=== PATIENT | female | born 1960 | race African-American/Black ===

== ENCOUNTER 2020-05-26 11:28 | Emergency (ER) | payer BC ==
--- OUTSIDE RECORDS SUMMARY | 2020-05-26 11:30 | XMS REPORT | Continuity of Care Document ---
:1960 Author Organization [facility] t Address [address] [place] [address] Care Team Providers Name Role Phone Merly QUINONEZ Primary Care Physician Lab, Fam Pob I Attending Clinician Unavailable Doctor Unassigned, Name Attending Clinician Unavailable Suleman QUINONEZ Attending Clinician Aniya QUINONEZ, 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 Radiother apy with 8.7 mCi of I -131 Sodium Iodide orally H/O H/O Disease Active Overview: [place] Graves' Graves' 05-17 Hyperthyr Metho di disease disease 00:00: oid st 00 therapy. Radiother apy with 8.7 mCi of I-131 Sodium Iodide Orally Allergies, Adverse Reactions, Alerts This patient has no known allergies or adverse reactions. Family History Family Member Diagnosis Comments Start Date Stop Date Source Natural father Diabetes type II [place] Natural father Hypertension [facility] Natural mother Coronary artery [place] disease Natural mother Diabetes type II [place] Natural mother Hypertension [facility] Social History Social Habit Start Date Stop Date Quantity Comments Source Sex Assigned At [facility] ethodist Tobacco use and 2018-02-04 2018-02-04 Never used [facility] ethodist exposure 00:00:00 00:00:00 Alcohol intake 2018-02-04 2018-02-04 Current drinker [place] 00:00:00 00:00:00 of alcohol (finding) Alcohol Comment 2016-12-23 2016-12-23 Social drinker [place] 00:00:00 00:00:00 Smoking Status Start Date Stop Date Source Never smoker [facility] Medications Ordered Filled Start Stop Current Ordering Indication Dosage Frequency Signature Comments Components Source Medication Medication Date Date Medication? Clinician (SIG) Name Name SYNTHROID Yes TAKE 1 [place] 112 mcg 3-28 TABLET BY [facility] tablet 00:00: MOUTH st 00 EVERY DAY SYNTHROID Yes TAKE 1 [place] 112 mcg 3-11 TABLET BY [facility] tablet 00:00: MOUTH st 00 EVERY DAY amLODIPine Yes 1{tbl} QD 1 tablet [place] (NORVASC) 8-21 daily. Methodi 10 mg 13:57: st tablet 02 atorvastati Yes 1{tbl} QD Take 1 [place] n (LIPITOR) 8-21 tablet by hodi 10 MG 13:57: mouth st tablet [address] 1 [place] 0.05 % 8-11 DROP IN Methodi ophthalmic 00:00: BOTH EYES st emulsion 00 TWICE A DAY gatifloxaci Yes PLACE 1 Daniel morataya n (ZYMAXID) 7-18 DROP IN Metho di 0.5 % drops 00:00: LEFT EYE st 00 FOUR TIMES A DAY FOR 7 DAYS Procedures This patient has no known procedures. Plan of Care Planned Activity Planned Date Details Comments Source Future Scheduled 2019-12-16 INFLUENZA VACCINE [place] Test 00:00:00 [code = INFLUENZA VACCINE] Future Scheduled 2008 BREAST CANCER [place] [facility]odist Test 00:00:00 SCREENING [code = BREAST CANCER SCREENING] Future Scheduled 2008 COLONOSCOPY SCREENING [place] Test 00:00:00 [code = COLONOSCOPY SCREENING] Future Scheduled 2008 SHINGLES VACCINES [place] Test 00:00:00 (#1) [code = SHINGLES VACCINES (#1)] Future Scheduled 1979-11-12 Screening for [facility] thodist Test 00:00:00 malignant neoplasm of cervix (procedure) [code = 732246747] Future Scheduled 1974 COVID-19 VACCINE (#1) [place] Test 00:00:00 [code = COVID-19 VACCINE (#1)] Encounters Start End Encounter Admission Attending Care Care Encounter Source Date/Time Date/Time Type Type Clinicians Facility Department ID 2020-05-26 2020-05-26 Laboratory Lab, [facility] [id number] 10:24:27 10:44:27 Only Fam Pob I Health [id number] [place] [id number] Professio [phone] nal [facility] [address] 2019-12-02 2019-12-02 Laboratory Lab, [facility] [id number] 15:18:59 15:38:59 Only Fam Pob I Health [id number] [place] [id number] Professio [phone] [place] [address] [address] 2019-12-02 2019-12-02 Letter Doctor KRISSY [id number] 00:00:00 00:00:00 (Out) Unassigned, STEPHEN [id number] [facility] [id number] 2019-07-07 2019-07-09 Emergency Jerson Shell [id number] 18:54:36 13:35:00 KwanBoaz bradfordy [id number] [facility] [id number] [id number] Results This patient has no known results.
--- OUTSIDE RECORDS SUMMARY | 2020-05-26 11:30 | XMS REPORT | Summary of Care ---
:1960 Author Organization [facility] [employer] [facility] Address [address] [place] [id number] Care Team Providers Name Role Phone Merly Primary Care Provider Reason for Visit Reason Comments LAB Covid test Encounter Details Date Type Department Care Team Description 05/26/2020 Laboratory Only [facility] Marylou Moore, IRRIGATION SPECIALIST [address] [place] [address] Exposure to Medicine - [facility], Adc Fam Pob I SARS-associated [address] [facility] coronaviru s ([address] Drive Dx) [place] [address] Allergies No Known Allergiesdocumented as of this encounter (statuses as of 05/26/2020) Medications Medication Sig Dispensed Refills Start Date End Date Status levothyroxine Take 112 mcg by 0 Active (SYNTHROID) 112 mcg mouth every tablet morning. enalapril-hydrochlorothi Take 1 tablet by 0 Active azide 10-25 mg per mouth daily. tablet atorvastatin 10 mg Take 10 mg by 0 Active tablet mouth at bedtime. methocarbamol 500 mg Take 1 tablet by 10 tablet 0 07/09/2019 Active tabletIndications: Neck mouth 3 (three) pain on right side times daily. documented as of this encounter (statuses as of 05/26/2020) Active Problems Problem Noted Date Intractable pain 07/09/2019 Musculoskeletal neck pain 07/08/2019 documented as of this encounter (statuses as of 05/26/2020) Social History Tobacco Use Types Packs/Day Years Used Date Never Smoker Smokeless Tobacco: Never Used Alcohol Use Drinks/Week oz/Week Comments Not Currently Sex Assigned at Date Recorded Not on file COVID-19 Exposure Response Date Recorded In the last month, have you been in contact with No / Unsure 05/26/2020 10:26 AM BUSHER HELPER someone who was confirmed or suspected to have Coronavirus / COVID-19? documented as of this encounter Last Filed Vital Signs Not on filedocumented in this encounter Nursing Notes Julia Peters RN - 05/26/2020 10:40 AM CSTChrisbirgit Diaz is a 59 year old female here for a Rule Out Covid-19 Nasopharyngeal Swab.Patient educated on plan of care for visit, swabbing technique, risks and benefits of test and length of time to receive results. Verbal consent obtained to perform test. CDC Fact Sheet for Patients provided to patient. All droplet and contact precautions taken with appropriate PPE worn while interacting with patient. - Goggles - N95 Mask - Gloves - Gown RR=18 O2 Lzm=671% Patient swabbed using appropriate nasopharyngeal technique, and patient tolerated well. Patient was discharged in stable condition. Julia Izquierdo RN 05/26/2020 10:29 AM ER HELPER documented in this encounter Plan of Treatment Name Type Priority Associated Diagnoses Order S chedule COVID-19 (MOLECULAR LAB Routine Exposure to Expected : 05/26/2020, TESTING SARS-associated Expires: 022 NUCLEIC ACID coronavirus AMPLIFICATION) Health Maintenance Due Date Last Done Comments HEPATITIS C (HCV) SCREEN 1960 HgA1C 11/12/1959 EYE EXAM 1968 LDL-C 1968 URINE MICROALBUMIN 1968 Depression Screening 1970 FOOT EXAM 1976 DTaP,Tdap,and Td Vaccines (1 - 1977 Tdap) PAP SMEAR 11/12/1979 Breast Cancer Screening 1998 (MAMMOGRAM) COLON CANCER SCREENING ANNUAL 2008 FIT/FOBT COLON CANCER SCREENING FIT DNA 2008 EVERY 3 YEARS COLON CANCER SCREENING 2008 SIGMOIDOSCOPY EVERY 5 YEARS COLONOSCOPY 2008 Colorectal Cancer Screening 2008 Zoster Recombinant Vaccine 2008 (SHINGRIX) (1 of 2) INFLUENZA VACCINE (#1) 2020 CREATININE (SERUM) 07/09/2020 07/09/2019, 07/08/2019, 07/07/2019 PNEUMOCOCCAL 0-64 YEARS Aged Out No longe r eligible based COMBINED SERIES on patient's age to complete this to pic documented as of this encounter Results Not on filedocumented in this encounter Visit Diagnoses Diagnosis Exposure to SARS-associated coronavirus - Primary documented in this encounter Additional Health Concerns Infection Onset Date Last Indicated Resolved Time COVID-19 Rule Out 05/26/2020 05/26/2020 documented as of this encounter Insurance Payer Benefit Plan Subscriber ID Effective Dates Phone Address Type / Group [facility] [id number] 2016-Stanislaw [phone] [address] PPO/[place] [id number] [place] [address] documented as of this encounter
--- OUTSIDE RECORDS SUMMARY | 2020-05-26 11:30 | XMS REPORT | Clinical Summary ---
:1960 Author Organization [facility] Address [address] [place] [address] Care Team Providers Name Role Phone MD Merly Primary Care Provider Allergies No Known Active Allergies Medications Medication Sig Dispensed Refills Start Date End Date Status amLODIPine (NORVASC) 10 1 tablet daily. 0 Active mg tablet atorvastatin (LIPITOR) Take 1 tablet by 0 Active 10 MG tablet mouth daily. gatifloxacin (ZYMAXID) PLACE 1 DROP IN 0 12/01/2016 Active 0.5 % drops LEFT EYE FOUR TIMES A DAY FOR 7 DAYS RESTASIS 0.05 % PLACE 1 DROP IN 2 12/25/2016 Active ophthalmic emulsion BOTH EYES TWICE A DAY SYNTHROID 112 mcg TAKE 1 TABLET BY 90 tablet 0 07/25/2018 Active tablet MOUTH EVERY DAY SYNTHROID 112 mcg TAKE 1 TABLET BY 90 tablet 0 08/11/2018 Active tablet MOUTH EVERY DAY Active Problems Problem Noted Date Benign hypertension 12/23/2016 Postablative hypothyroidism 12/23/2016 Toxic diffuse goiter 12/23/2016 Postablative hypothyroidism 05/17/2005 Overview: Grave's Disease: hyperthyroid therapy. R adiotherapy with 8.7 mCi of I -131 Sodium Iodide orally H/O Graves' disease 05/17/2005 Overview: Hyperthyroid therapy. Radiotherapy with 8.7 mCi of I-131 Sodium Iodide Orally Surgical History Surgery Date Site/Laterality Comments NO PAST SURGERIES Medical History Medical History Date Comments Benign hypertension 2011 Postablative hypothyroidism 2006 Grave's Dise ase: hyperthyroid therapy. Radiotherapy with 8.7 mCi of I -1 31 Sodium Iodide orally Toxic diffuse goiter 2005 H/O Graves' disease 2006 Hyperthyroid therapy . Radiotherapy with 8.7 mCi of I-131 Sodium Iodide Orally Family History Medical History Relation Name Comments Diabetes type II Father Hypertension Father Coronary artery disease Mother Diabetes type II Mother Hypertension Mother Relation Name Status Comments Father Mother Social History Tobacco Use Types Packs/Day Years Used Date Never Smoker Smokeless Tobacco: Never Used Alcohol Use Drinks/Week oz/Week Comments Yes Social drinker Sex Assigned at Date Recorded Not on file Last Filed Vital Signs Not on file Plan of Treatment Health Maintenance Due Date Last Done Comments COVID-19 VACCINE (#1) 1974 CERVICAL CANCER SCREENING 11/12/1979 BREAST CANCER SCREENING 2008 COLONOSCOPY SCREENING 2008 SHINGLES VACCINES (#1) 2008 INFLUENZA VACCINE 12/16/2019 Results Not on fileafter 05/26/2019 (Work) Advance Directives For more information, please contact: [phone] Type Date Recorded Patient Lpn Explanati on Advance Directives, Living Will 02/18/2018 5:34 PM and 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
[2020-05-26] MEDS ORDERED: dexAMETHasone 10 MG/ML VIAL ONE (12:04)
[2020-05-26 12:25] LABS: Absolute Lymphocytes (CBC) 0.7 K/uL (0.7-4.9); Basophils % 0.5 % (0-1.3); Lymphocytes % 18.4 % (15.3-44.8); MPV 8.3 fL (7.6-11.3)
[2020-05-26 12:40] LABS: Potassium 3.7 mmol/L (3.5-5.1)
[2020-05-26 12:51] LABS: Thyroid Stimulating Hormone 7.32 uIU/mL (0.360-3.740)
--- NOTE | 2020-05-26 12:55 | RAD REPORT ---
EXAM DESCRIPTION: RAD - Chest Single View - 05/26/2020 12:50 pm CLINICAL HISTORY: COUGH Chest pain. COMPARISON: Chest Pa And Lat (2 Views) dated 03/17/2016 FINDINGS: Portable technique limits examination quality. The lungs are grossly clear. The heart is upper limit of normal in size. No displaced fractures. IMPRESSION: No acute intrathoracic process suspected.
[2020-05-26 14:37] LABS: SARS-COV-2 RT PCR POSITIVE (NEGATIVE)
--- NOTE | 2020-05-26 14:59 | ER ---
Nurse's Notes [facility] Name: Shruti Diaz Age: 59 yrs Sex: Female : 1960 Arrival Date: 05/26/2020 Time: 11:30 Bed 16 Private MD: Pancho Moreland V Diagnosis: SARS-associated coronavirus as the cause of diseases classified elsewhere Presentation: 05/26 11:35 Chief complaint: Patient states: bodyaches and slight headache since yesterday. ca1 Coronavirus screen: Client denies travel out of the [place] in the last 14 days. fever, headache, muscle pain, Client presents with at least one sign or symptom that may indicate coronavirus-19. Standard/surgical mask placed on the client. Provider contacted for isolation considerations. Ebola Screen: Patient negative for fever greater than or equal to 101.5 degrees Fahrenheit, and additional compatible Ebola Virus Disease symptoms Patient denies exposure to infectious person. Patient denies travel to an Ebola-affected area in the 21 days before illness onset. No symptoms or risks identified at this time. Initial Sepsis Screen: Does the patient meet any 2 criteria? No. Patient's initial sepsis screen is negative. Does the patient have a suspected source of infection? No. Patient's initial sepsis screen is negative. Risk Assessment: Do you want to hurt yourself or someone else? Patient reports no desire to harm self or others. Onset of symptoms was May 25, 2020. 11:35 Method Of Arrival: Ambulatory ca1 11:35 Acuity: JANE 4 ca1 Triage Assessment: 11:45 General: Appears in no apparent distress. comfortable, Behavior is calm, cooperative, bp appropriate for age. Pain: Complains of pain in GENERAL MYALGIA. EENT: No deficits noted. Neuro: No deficits noted. Cardiovascular: No deficits noted. Respiratory: No deficits noted. GI: No signs and/or symptoms were reported involving the gastrointestinal system. : No signs and/or symptoms were reported regarding the genitourinary system. Derm: No deficits noted. Musculoskeletal: No deficits noted. Historical: - Allergies: 11:45 No Known Allergies; ca1 - PMHx: 11:45 Thyroid problem; Hypertension; High Cholesterol; ca1 - PSHx: 11:45 None; ca1 - Immunization history:: Flu vaccine is up to date. - Social history:: Smoking status: Patient denies any tobacco usage or history of. Screenin:45 Abuse screen: Denies threats or abuse. Denies injuries from another. Nutritional bp screening: No deficits noted. Tuberculosis screening: No symptoms or risk factors identified. Fall Risk None identified. Assessment: 12:56 Reassessment: Patient appears in no apparent distress at this time. No changes from bp previously documented assessment. Patient and/or family updated on plan of care and expected duration. Pain level reassessed. ALL CURRENT ORDERS COMPLETED. 14:00 Reassessment: No changes from previously documented assessment. Patient and/or family bp updated on plan of care and expected duration. Pain level reassessed. Patient is alert, oriented x 3, equal unlabored respirations, skin warm/dry/pink. 15:26 Reassessment: PT D/C HOME AMBULATORY, DX WITH COVID. bp Vital Signs: 11:35 BP 143 / 79; Pulse 102; Resp 16 S; Temp 100(O); Pulse Ox 99% on R/A; Weight 81.65 kg ca1 (R); Height 5 ft. 2 in. (157.48 cm) (R); 12:56 BP 139 / 76; Pulse 90; Resp 16; Pulse Ox 98% ; bp 14:00 BP 133 / 71; Pulse 97; Resp 16; Pulse Ox 97% ; bp 15:00 BP 130 / 57; Pulse 98; Resp 17; Temp 98.9; Pulse Ox 98% ; bp 11:35 Body Mass Index 32.92 (81.65 kg, 157.48 cm) ca1 ED Course: 11:30 Patient arrived in ED. ag5 11:31 Pancho Moreland MD is Private Physician. ag5 11:33 Henri[facility] Reeves [facility]-C [facility]. snw 11:33 David Esqueda MD is Attending Physician. snw 11:37 Win Delgado, BRETT is Primary Nurse. bp 11:45 Triage completed. ca1 11:45 Arm band placed on right wrist. ca1 11:45 Patient has correct armband on for positive identification. Bed in low position. Call bp light in reach. Side rails up X2. 11:46 COVID swab sent to lab. Flu and/or RSV swab sent to lab. ca1 12:00 Inserted saline lock: 20 gauge in left antecubital area, using aseptic technique. Blood bp collected. 12:06 Flu Sent. bp 12:50 Chest Single View XRAY In Process Unspecified. EDMS 14:00 No provider procedures requiring assistance completed. bp 14:57 Pancho Moreland MD is Referral Physician. snw 15:27 IV discontinued, intact, bleeding controlled, No redness/swelling at site. Pressure bp dressing applied. Administered Medications: 12:00 Drug: NS 0.9% 500 ml Route: IV; Rate: bolus; Site: left antecubital; bp 15:10 Follow up: IV Status: Completed infusion; IV Intake: 500ml bp 12:00 Drug: Decadron - Dexamethasone 10 mg Route: IVP; Site: left antecubital; bp 12:57 Follow up: Response: No adverse reaction bp 15:00 Drug: Aspirin 81 mg Route: PO; bp 15:28 Follow up: Response: No adverse reaction bp 15:00 Drug: Zithromax 500 mg Route: PO; bp 15:28 Follow up: Response: No adverse reaction bp Intake: 15:10 IV: 500ml; Total: 500ml. bp Outcome: 14:58 Discharge ordered by . snw 15:27 Discharged to home ambulatory. bp 15:27 Condition: stable 15:27 Discharge instructions given to patient, Instructed on discharge instructions, follow up and referral plans. medication usage, Demonstrated understanding of instructions, follow-up care, medications, Prescriptions given X 4. 15:28 Patient left the ED. bp Signatures: Dispatcher [employer] EDAL Henrietta Reeves, SPRAY MIXER-C SPRAY MIXER-Csnw Win Delgado RN RN bp Corazon George RN RN [facility] Duran Car ag5
--- NOTE | 2020-05-26 14:59 | EDPHYS ---
Physician Documentation [facility] Name: Shruti Diaz Age: 59 yrs Sex: Female : 1960 Arrival Date: 05/26/2020 Time: 11:30 Bed 16 Private MD: Pancho Moreland V ED Physician David Esqueda HPI: 05/26 12:42 This 59 yrs old Black Female presents to ER via Ambulatory with complaints of Body snw Aches. 12:42 Onset: The symptoms/episode began/occurred suddenly, yesterday. Associated signs and snw symptoms: Pertinent positives: fatigue. Modifying factors: The patient symptoms are alleviated by nothing. The patient has not experienced similar symptoms in the past. The patient has not recently seen a physician. Historical: - Allergies: 11:45 No Known Allergies; ca1 - PMHx: 11:45 Thyroid problem; Hypertension; High Cholesterol; ca1 - PSHx: 11:45 None; ca1 - Immunization history:: Flu vaccine is up to date. - Social history:: Smoking status: Patient denies any tobacco usage or history of. ROS: 12:41 Eyes: Negative for injury, pain, redness, and discharge, ENT: Negative for injury, snw pain, and discharge, Neck: Negative for injury, pain, and swelling, Cardiovascular: Negative for chest pain, palpitations, and edema, Respiratory: Negative for shortness of breath, cough, wheezing, and pleuritic chest pain, Abdomen/GI: Negative for abdominal pain, nausea, vomiting, diarrhea, and constipation, Back: Negative for injury and pain, : Negative for injury, bleeding, discharge, and swelling, MS/Extremity: Negative for injury and deformity, Skin: Negative for injury, rash, and discoloration, Neuro: Negative for headache, weakness, numbness, tingling, and seizure, Psych: Negative for depression, anxiety, suicide ideation, homicidal ideation, and hallucinations. 12:41 Constitutional: Positive for body aches, fatigue, fever, poor PO intake. Exam: 12:41 Constitutional: This is a well developed, well nourished patient who is awake, alert, snw and in no acute distress. Head/Face: Normocephalic, atraumatic. Eyes: Pupils equal round and reactive to light, extra-ocular motions intact. Lids and lashes normal. Conjunctiva and sclera are non-icteric and not injected. Cornea within normal limits. Periorbital areas with no swelling, redness, or edema. ENT: Nares patent. No nasal discharge, no septal abnormalities noted. Tympanic membranes are normal and external auditory canals are clear. Oropharynx with no redness, swelling, or masses, exudates, or evidence of obstruction, uvula midline. Mucous membranes moist. Neck: Trachea midline, no thyromegaly or masses palpated, and no cervical lymphadenopathy. Supple, full range of motion without nuchal rigidity, or vertebral point tenderness. No Meningismus. Chest/axilla: Normal chest wall appearance and motion. Nontender with no deformity. No lesions are appreciated. 12:41 Respiratory: Lungs have equal breath sounds bilaterally, clear to auscultation and percussion. No rales, rhonchi or wheezes noted. No increased work of breathing, no retractions or nasal flaring. Abdomen/GI: Soft, non-tender, with normal bowel sounds. No distension or tympany. No guarding or rebound. No evidence of tenderness throughout. Back: No spinal tenderness. No costovertebral tenderness. Full range of motion. Skin: Warm, dry with normal turgor. Normal color with no rashes, no lesions, and no evidence of cellulitis. MS/ Extremity: Pulses equal, no cyanosis. Neurovascular intact. Full, normal range of motion. Neuro: Awake and alert, GCS 15, oriented to person, place, time, and situation. Cranial nerves II-XII grossly intact. Motor strength 5/5 in all extremities. Sensory grossly intact. Cerebellar exam normal. Normal gait. Psych: Awake, alert, with orientation to person, place and time. Behavior, mood, and affect are within normal limits. 12:41 Cardiovascular: Rate: tachycardic, Rhythm: regular, Heart sounds: normal. Vital Signs: 11:35 BP 143 / 79; Pulse 102; Resp 16 S; Temp 100(O); Pulse Ox 99% on R/A; Weight 81.65 kg ca1 (R); Height 5 ft. 2 in. (157.48 cm) (R); 12:56 BP 139 / 76; Pulse 90; Resp 16; Pulse Ox 98% ; bp 14:00 BP 133 / 71; Pulse 97; Resp 16; Pulse Ox 97% ; bp 15:00 BP 130 / 57; Pulse 98; Resp 17; Temp 98.9; Pulse Ox 98% ; bp 11:35 Body Mass Index 32.92 (81.65 kg, 157.48 cm) ca1 MDM: 11:35 Patient medically screened. snw 14:58 Data reviewed: vital signs, nurses notes. Data interpreted: Pulse oximetry: on room air snw is 98 %. Interpretation: normal. Counseling: I had a detailed discussion with the patient and/or guardian regarding: the historical points, exam findings, and any diagnostic results supporting the discharge/admit diagnosis, lab results, radiology results, the need for outpatient follow up, to return to the emergency department if symptoms worsen or persist or if there are any questions or concerns that arise at home. Special discussion: Based on the history and exam findings, there is no indication for further emergent testing or inpatient evaluation. I discussed with the patient/guardian the need to see the primary care provider for further evaluation of the symptoms. 05/26 11:34 Order name: Flu snw 05/26 11:41 Order name: CBC with Diff; Complete Time: 12:29 snw 05/26 11:41 Order name: Chem 7; Complete Time: 13:08 snw 05/26 11:41 Order name: TSH; Complete Time: 13:08 snw 05/26 12:29 Order name: Chest Single View XRAY; Complete Time: 13:08 snw 05/26 12:51 Order name: T4 Free; Complete Time: 13:08 EDMS 05/26 14:38 Order name: COVID-19/FLU A+B; Complete Time: 14:40 EDMS Administered Medications: 12:00 Drug: NS 0.9% 500 ml Route: IV; Rate: bolus; Site: left antecubital; bp 15:10 Follow up: IV Status: Completed infusion; IV Intake: 500ml bp 12:00 Drug: Decadron - Dexamethasone 10 mg Route: IVP; Site: left antecubital; bp 12:57 Follow up: Response: No adverse reaction bp 15:00 Drug: Aspirin 81 mg Route: PO; bp 15:28 Follow up: Response: No adverse reaction bp 15:00 Drug: Zithromax 500 mg Route: PO; bp 15:28 Follow up: Response: No adverse reaction bp Disposition: 15:43 Co-signature as Attending Physician, David Esqueda MD. rn Disposition: 05/26/20 14:58 Discharged to Home. Impression: SARS-associated coronavirus as the cause of diseases classified elsewhere. - Condition is Stable. - Discharge Instructions: Rehydration, Adult, COVID-19, Aspirin and Your Heart. - Prescriptions for Zinc (with A and C) Lozenges - take 1 unit by ORAL route once daily; 30 unit. Prednisone 20 mg Oral Tablet - take 2 tablet by ORAL route once daily for 5 days; 10 tablet. promethazine 25 mg Oral Tablet - take 1 tablet by ORAL route every 6 hours As needed; 20 tablet. Zithromax 500 mg Oral Tablet - take 1 tablet by ORAL route once daily for 5 days; 5 tablet. - Medication Reconciliation Form, Thank You Letter, Antibiotic Education, Prescription Opioid Use, Work release form form. - Follow up: Pancho Moreland MD; When: 1 - 2 days; Reason: Recheck today's complaints, Continuance of care, Re-evaluation by your physician. Follow up: Emergency Department; When: As needed; Reason: Worsening of condition. Signatures: Dispatcher [employer] EDVA Henrietta Reeves, GEOTHERMAL FIELD TECHNICIAN-C GEOTHERMAL FIELD TECHNICIAN-Csnw David Esqueda MD MD rn Peltier, Brian RN Corazon Shukla RN BRETT ca1 Corrections: (The following items were deleted from the chart) 13:51 11:35 CORONAVIRUS+ ordered. [facility] 15:28 14:58 05/26/2020 14:58 Discharged to Home. Impression: SARS-associated coronavirus as bp the cause of diseases classified elsewhere. Condition is Stable. Discharge Instructions: Rehydration, Adult, COVID-19, Aspirin and Your Heart. Prescriptions for Zinc (with A and C) Lozenges - take 1 unit by ORAL route once daily; 30 unit, Prednisone 20 mg Oral Tablet - take 2 tablet by ORAL route once daily for 5 days; 10 tablet, promethazine 25 mg Oral Tablet - take 1 tablet by ORAL route every 6 hours As needed; 20 tablet, Zithromax 500 mg Oral Tablet - take 1 tablet by ORAL route once daily for 5 days; 5 tablet. and Forms are Work release form, Medication Reconciliation Form, Thank You Letter, Antibiotic Education, Prescription Opioid Use. Follow up: Pancho Moreland; When: 1 - 2 days; Reason: Recheck today's complaints, Continuance of care, Re-evaluation by your physician. Follow up: Emergency Department; When: As needed; Reason: Worsening of condition. snw
[2020-05-26] MEDS ORDERED: ASPIRIN 81 MG CHEWABLE TABLET ONE (15:31)
[2020-05-26] MEDS ORDERED: AZITHROMYCIN 250 MG TAB ONE (15:32)
[2020-05-26 15:37] VITALS: BP 130/57; TEMP 98.9; O2SAT 98
== END 2020-05-26 15:28 | disposition home or self-care (01) ==
LOC: ER 11:28
DX: U07.1 COVID-19 (principal); I10 Essential (primary) hypertension
CPT/HCPCS: 85025; 80048; 36415; 84443; 84439; 0240U; 71045; J1100; 96361; 96374; 99284

== ENCOUNTER 2020-05-31 02:21 | Inpatient (IN) | payer BC ==
--- OUTSIDE RECORDS SUMMARY | 2020-05-31 02:24 | XMS REPORT | Continuity of Care Document ---
:1960 Author Organization [facility] t Address [address] [place] [address] Care Team Providers Name Role Phone Merly QUINONEZ Primary Care Physician Lab, Fam Pob I Attending Clinician Unavailable Doctor Unassigned, Name Attending Clinician Unavailable Suleman QUINONEZ Attending Clinician Aniya QUINONEZ, [facility] Attending Clinician Jono QUINONEZ Admitting Clinician Problems Condition Condition Condition Status Onset Resolution Last Treating Co mments Source Name Details Category Date Date Treatment Clinician Date Benign Benign Disease Active [place] hypertensi hypertensi 12-23 Me thodi on on 00:00: st Postablati Postablati Disease Active [place] ve ve 12-23 [facility] hypothyroi hypothyroi 00:00: dism 00 Toxic Toxic Disease Active [place]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 Radiother apy with [...] Natural father Diabetes type II [place] [facility] Natural father Hypertension [facility] Natural mother Coronary artery [place] [facility] disease Natural mother Diabetes type II [place] [facility] Natural mother Hypertension [facility] Social History Social Habit Start Date Stop Date Quantity Comments Source Sex Assigned At [facility] ethodist Tobacco use and 2018-02-04 2018-02-04 Never used [facility] ethodist exposure 00:00:00 00:00:00 Alcohol intake 2018-02-04 2018-02-04 Current drinker [place] [facility] 00:00:00 00:00:00 of alcohol (finding) Alcohol Comment 2016-12-23 2016-12-23 Social drinker [place] [facility] 00:00:00 00:00:00 Smoking Status Start Date Stop Date Source Never smoker [facility] Medications Ordered Filled Start Stop Current Ordering [...] 02 atorvastati Yes 1{tbl} QD Take 1 [place] weeks n (LIPITOR) 8-21 tablet by [facility] hodi 10 MG 13:57: mouth st tablet [address]. [address] 1 [place] 0.05 % 8-11 DROP IN Methodi [...] Future Scheduled 2019-12-16 INFLUENZA VACCINE [place] [facility] Test 00:00:00 [code = INFLUENZA VACCINE] Future Scheduled 2008 BREAST CANCER [place] [facility] Test 00:00:00 SCREENING [code = BREAST CANCER SCREENING] Future Scheduled 2008 COLONOSCOPY SCREENING [place] [facility] Test 00:00:00 [code = COLONOSCOPY SCREENING] Future Scheduled 2008 SHINGLES VACCINES [place] [facility] Test 00:00:00 (#1) [code = SHINGLES VACCINES (#1)] Future Scheduled 1979-11-12 Screening for [facility] thodist Test 00:00:00 malignant neoplasm of cervix (procedure) [code = 100536107] Future Scheduled 1974 COVID-19 VACCINE (1 [place] [facility] Test 00:00:00 of 2) [code = COVID-19 VACCINE (1 of 2)] Encounters Start End Encounter Admission Attending Care Care Encounter Source Date/Time Date/Time Type Type Clinicians Facility Department ID 2020-05-26 2020-05-26 Laboratory Lab, [facility] [id number] 10:24:27 10:44:27 Only Fam Pob I Health [id number] [place] [id number] Professio [phone] nal [facility] [address] 2019-12-02 2019-12-02 Laboratory Lab, [facility] [id number] 15:18:59 15:38:59 Only Fam Pob I Health [id number] [place] [id number] Professio [phone] [place] [address] [address] 2019-12-02 2019-12-02 Letter Doctor KRISSY [id number] 00:00:00 00:00:00 (Out) Unassigned, STEPHEN [id number] [facility] [id number] [id number] 2019-07-07 2019-07-09 Emergency Jerson Shell [id number] 18:54:36 13:35:00 AniyaBoaz [id number] [facility] [phone] [id number] Results This patient has no known results.
--- OUTSIDE RECORDS SUMMARY | 2020-05-31 02:24 | XMS REPORT | Clinical Summary ---
:1960 Author Organization [facility] Address [address] [place] [address] Care Team Providers Name Role Phone MD [...] Due Date Last Done Comments COVID-19 VACCINE (1 of 2) 1974 CERVICAL CANCER SCREENING 11/12/1979 BREAST CANCER SCREENING 2008 COLONOSCOPY SCREENING 2008 SHINGLES VACCINES (#1) 2008 INFLUENZA VACCINE 12/16/2019 Results Not on fileafter 05/31/2019 (Work) Advance Directives For more information, please contact: [phone] Type Date Recorded Patient Knotter Hand Explanati on Advance Directives, Living Will 02/18/2018 5:34 PM and Medical Power of Drier Take Off Tender
--- NOTE | 2020-05-31 02:46 | ER ---
Nurse's Notes [facility] Name: Shruti Diaz Age: 59 yrs Sex: Female : 1960 Arrival Date: 05/31/2020 Time: 02:23 Bed 14 Private MD: Diagnosis: Fever, unspecified;SARS-associated coronavirus as the cause of diseases classified elsewhere-covid 19;Hypoxemia Presentation: 05/31 02:24 Chief complaint: EMS states: Pt was covid + Wednesday reported to EMS that symptoms were ea worsening. EMS reported she was tachy at around 109, temp 102.2 was given a gram of Tylenol. 20 G IV initiated NS. Coronavirus screen: Client reports previous positive COVID test result. Ebola Screen: No symptoms or risks identified at this time. Initial Sepsis Screen: Does the patient meet any 2 criteria? Yes Does the patient have a suspected source of infection? No. Patient's initial sepsis screen is negative. Risk Assessment: Do you want to hurt yourself or someone else? Patient reports no desire to harm self or others. Onset of symptoms was May 31, 2020. 02:24 Method Of Arrival: EMS: [facility] ea 02:24 Acuity: JANE 3 ea Historical: - Allergies: 02:33 No Known Allergies; ea - PMHx: 02:33 Thyroid problem; Hypertension; High Cholesterol; ea - PSHx: 02:33 None; ea - Immunization history:: Adult Immunizations unknown. - Social history:: Smoking status: Patient denies any tobacco usage or history of. - Family history:: not pertinent. Screenin:30 Abuse screen: Denies threats or abuse. Nutritional screening: No deficits noted. ea Tuberculosis screening: No symptoms or risk factors identified. Fall Risk IV access (20 points). Assessment: 02:33 General: Appears in no apparent distress. Behavior is calm, cooperative, appropriate ea for age. Pain: Denies pain. Neuro: Level of Consciousness is awake, alert, obeys commands, Oriented to person, place, time. Cardiovascular: Patient's skin is warm and dry. Respiratory: Airway is patent Respiratory effort is even, unlabored, Respiratory pattern is regular, symmetrical. Derm: Skin is pink, warm \T\ dry. 07:55 Reassessment: Spoke to Win (pharmacist in house) and states Ivermectin will not be aa5 available until later today, Dr. Solo aware, Ivermectin will be administered when available. . Vital Signs: 02:24 BP 143 / 69; Pulse 102; Resp 22; Temp 102.2; Pulse Ox 94% on R/A; Weight 81.65 kg; ea Height 5 ft. 2 in. (157.48 cm); 04:21 BP 112 / 65; Pulse 83; Resp 18; Temp 100.2; Pulse Ox 99% on R/A; ea 02:24 Body Mass Index 32.92 (81.65 kg, 157.48 cm) ea ED Course: 02:23 Patient arrived in ED. ea 02:25 Kenyon Solo MD is Attending Physician. guido 02:30 Triage completed. ea 02:30 Maintain EMS IV. Dressing intact. Good blood return noted. Site clean \T\ dry. Gauge \T\ ea site: 20G right AC . 02:30 Arm band placed on right wrist. Patient placed in an exam room, on a stretcher, on ea pulse oximetry. 02:31 Patient has correct armband on for positive identification. Bed in low position. Call ea light in reach. Side rails up X2. vehicle monitor technician on. Pulse ox on. NIBP on. 02:32 No provider procedures requiring assistance completed. ea 02:33 Sirisha Cueva, BRETT is Primary Nurse. ea 02:43 Pancho Moreland MD is Hospitalizing Provider. guido 03:00 XRAY Chest (1 view) In Process Unspecified. EDMS 04:22 Patient admitted, IV remains in place. ea Administered Medications: 04:15 Drug: Pepcid 20 mg Route: IVP; Site: right antecubital; ea 06:58 Follow up: Response: No adverse reaction ea 04:16 Drug: Rocephin 1 grams Route: IV; Rate: per protocol; Site: right antecubital; ea 04:30 Follow up: IV Status: Completed infusion ea 04:16 Drug: Lovenox 1 mg/kg Route: Sub-Q; Site: right lower abdomen; ea 06:58 Follow up: Response: No adverse reaction ea 04:17 Drug: Decadron - Dexamethasone 10 mg Route: IVP; Site: right antecubital; ea 06:59 Follow up: Response: No adverse reaction ea 04:18 Drug: NS 0.9% 500 ml Route: IV; Rate: bolus; Site: right antecubital; ea 06:59 Follow up: IV Status: Completed infusion; IV Intake: 500ml ea 04:18 Drug: NS 0.9% 1000 ml Route: IV; Rate: 125 ml/hr; Site: right antecubital; ea 06:59 Follow up: Response: No adverse reaction; IV Status: Completed infusion ea 04:20 Not Given (Other Intervention Used): Tylenol 1000 mg PO once ea 04:30 Drug: Zithromax 500 mg Route: IVPB; Infused Over: 1 hrs; Site: right antecubital; ea 07:16 Drug: Aspirin 162 mg Route: PO; ea 08:00 Follow up: Response: No adverse reaction sv 14:08 Not Given (Ordered as admission order (see [facility])): Ivermectin 200 mcg/kg PO once; aa5 administer on an empty stomach 20:55 Not Given (Physician Discretion): Albuterol HFA Inhaler 4 puffs Inhalation once ea Intake: 06:59 IV: 500ml; Total: 500ml. ea Outcome: 02:45 Decision to Hospitalize by Provider. guido 04:21 Condition: stable ea 04:21 Instructed on the need for admit. 07:00 Admitted to ER Hold. Please see [facility] for further documentation. aa5 06/01 02:49 Patient left the ED. ea Signatures: Dispatcher [employer] Daisy Corado, Kenyon Vasquez RN, MD MD cha Calderon, Audri, RN RN aa5 Antunez, Elena, RN RN ea
--- NOTE | 2020-05-31 02:47 | EDPHYS ---
Physician Documentation [facility] Name: Shruti Diaz Age: 59 yrs Sex: Female : 1960 Arrival Date: 05/31/2020 Time: 02:23 Bed 14 Private MD: ED Physician Kenyon Solo HPI: 05/31 02:39 This 59 yrs old Black Female presents to ER via EMS with complaints of covid, sob and guido fever. 02:39 The patient has shortness of breath at rest, with light activity. Onset: The guido symptoms/episode began/occurred 5 day(s) ago. Duration: The symptoms are continuous, and are steadily getting worse. The patient's shortness of breath is aggravated by coughing. The patient or guardian reports cough, difficulty breathing, flu symptoms, arthralgias, low-grade fever, myalgias. Modifying factors: The symptoms are alleviated by nothing. remaining still, the symptoms are aggravated by activity, hot environment. Associated signs and symptoms: The patient has no apparent associated signs or symptoms. Severity of symptoms: At their worst the symptoms were mild in the emergency department the symptoms are unchanged. The patient or guardian reports hoarse voice. Historical: - Allergies: 02:33 No Known Allergies; ea - PMHx: 02:33 Thyroid problem; Hypertension; High Cholesterol; ea - PSHx: 02:33 None; ea - Immunization history:: Adult Immunizations unknown. - Social history:: Smoking status: Patient denies any tobacco usage or history of. - Family history:: not pertinent. ROS: 02:39 Eyes: Negative for injury, pain, redness, and discharge, ENT: Negative for injury, guido pain, and discharge, Neck: Negative for injury, pain, and swelling, Cardiovascular: Negative for chest pain, palpitations, and edema, Abdomen/GI: Negative for abdominal pain, nausea, vomiting, diarrhea, and constipation, Back: Negative for injury and pain, : Negative for injury, bleeding, discharge, and swelling, MS/Extremity: Negative for injury and deformity, Skin: Negative for injury, rash, and discoloration, Neuro: Negative for headache, weakness, numbness, tingling, and seizure, Psych: Negative for depression, anxiety, suicide ideation, homicidal ideation, and hallucinations, Allergy/Immunology: Negative for hives, rash, and allergies, Endocrine: Negative for neck swelling, polydipsia, polyuria, polyphagia, and marked weight changes, Hematologic/Lymphatic: Negative for swollen nodes, abnormal bleeding, and unusual bruising. 02:39 Constitutional: Positive for 02:39 Respiratory: Positive for cough, shortness of breath. 02:39 MS/extremity: Negative for acute changes, decreased range of motion, pain, tenderness. Exam: 02:39 Head/Face: Normocephalic, atraumatic. Eyes: Pupils equal round and reactive to light, guido extra-ocular motions intact. Lids and lashes normal. Conjunctiva and sclera are non-icteric and not injected. Cornea within normal limits. Periorbital areas with no swelling, redness, or edema. ENT: Nares patent. No nasal discharge, no septal abnormalities noted. Tympanic membranes are normal and external auditory canals are clear. Oropharynx with no redness, swelling, or masses, exudates, or evidence of obstruction, uvula midline. Mucous membranes moist. Neck: Trachea midline, no thyromegaly or masses palpated, and no cervical lymphadenopathy. Supple, full range of motion without nuchal rigidity, or vertebral point tenderness. No Meningismus. Chest/axilla: Normal chest wall appearance and motion. Nontender with no deformity. No lesions are appreciated. Cardiovascular: Regular rate and rhythm with a normal S1 and S2. No gallops, murmurs, or rubs. Normal PMI, no JVD. No pulse deficits. Abdomen/GI: Soft, non-tender, with normal bowel sounds. No distension or tympany. No guarding or rebound. No evidence of tenderness throughout. Back: No spinal tenderness. No costovertebral tenderness. Full range of motion. Female : Normal external genitalia. Skin: Warm, dry with normal turgor. Normal color with no rashes, no lesions, and no evidence of cellulitis. MS/ Extremity: Pulses equal, no cyanosis. Neurovascular intact. Full, normal range of motion. Neuro: Awake and alert, GCS 15, oriented to person, place, time, and situation. Cranial nerves II-XII grossly intact. Motor strength 5/5 in all extremities. Sensory grossly intact. Cerebellar exam normal. Normal gait. Psych: Awake, alert, with orientation to person, place and time. Behavior, mood, and affect are within normal limits. 02:39 Constitutional: The patient appears febrile, in obvious distress, mildly distressed. 02:39 Cardiovascular: Rate: normal, actual rate is 102 bpm, Rhythm: regular, Pulses: Pulses are 4+ in bilateral radial, brachial, femoral, popliteal, posterior tibial and and dorsalis pedis arteries.. Heart sounds: normal, Edema: is not appreciated, JVD: is not appreciated. 03:01 ECG was reviewed by the Attending Physician. [facility] Vital Signs: 02:24 BP 143 / 69; Pulse 102; Resp 22; Temp 102.2; Pulse Ox 94% on R/A; Weight 81.65 kg; ea Height 5 ft. 2 in. (157.48 cm); 04:21 BP 112 / 65; Pulse 83; Resp 18; Temp 100.2; Pulse Ox 99% on R/A; ea 02:24 Body Mass Index 32.92 (81.65 kg, 157.48 cm) ea MDM: 02:26 Patient medically screened. [facility] 02:45 Differential diagnosis: asthma, Bronchitis CHF exacerbation, Chronic Obstructive guido Pulmonary Disease bronchitis, flu, URI, pneumonia, pulmonary edema, Pulmonary Embolism Sepsis Unstable Angina. Antibiotic administration: Rocephin and Zithromax given. The patient's Wells Deep Vein Thrombosis Score was calculated as follows: Heart Rate >100 BPM (1.5 Pts) Total Score: 0-2 Pts- Low Risk. Differential Diagnosis: Bronchitis Influenza Upper Respiratory Infection Sinusitis Allergic Rhinitis Asthma Exacerbation Pneumonia. The patient's pulmonary embolism risk score was calculated as follows: Total Score: 0-2 points. This patient was found to be at low risk for a pulmonary embolism by using the Well's assessment criteria. Immunization status: Influenza vaccine: Data reviewed: vital signs, nurses notes, lab test result(s), EKG, radiologic studies, CT scan, plain films. Data interpreted: vehicle monitor technician: rate is 102 beats/min, rhythm is regular. Test interpretation: by ED physician or midlevel provider: ECG, plain radiologic studies. 05/31 02:38 Order name: Basic Metabolic Panel [facility] 05/31 02:38 Order name: CBC with Diff 05/31 02:38 Order name: LFT's [facility] 05/31 02:38 Order name: Magnesium [facility] 05/31 02:38 Order name: NT PRO-BNP [facility] 05/31 02:38 Order name: PT-INR; Complete Time: 04:00 [facility] 05/31 02:38 Order name: Troponin (emerg Dept Use Only); Complete Time: 04:00 [facility] 05/31 02:38 Order name: Ferritin; Complete Time: 04:00 [facility] 05/31 02:38 Order name: CRP; Complete Time: 04:00 [facility] 05/31 02:38 Order name: Basic Metabolic Panel; Complete Time: 04:00 [facility] 05/31 02:38 Order name: CBC with Automated Diff; Complete Time: 04:00 [facility] 05/31 02:38 Order name: Liver (Hepatic) Function; Complete Time: 04:00 [facility] 05/31 02:38 Order name: Magnesium; Complete Time: 04:00 [facility] 05/31 02:38 Order name: NT PRO-BNP; Complete Time: 04:00 [facility] 05/31 02:38 Order name: XRAY Chest (1 view) [facility] 05/31 02:38 Order name: CT Chest For PE Angio [facility] 05/31 08:39 Order name: Troponin I [facility] 05/31 17:05 Order name: Troponin I [facility] 05/31 17:55 Order name: CT [facility] 05/31 02:38 Order name: EKG; Complete Time: 02:39 [facility] 05/31 02:38 Order name: Cardiac monitoring; Complete Time: 02:54 [facility] 05/31 02:38 Order name: EKG - Nurse/Tech; Complete Time: 02:54 [facility] 05/31 02:38 Order name: IV Saline Lock; Complete Time: 04:12 [facility] 05/31 02:38 Order name: Labs collected and sent; Complete Time: 04:13 [facility] 05/31 02:38 Order name: O2 Per Protocol; Complete Time: 02:54 [facility] 05/31 02:38 Order name: O2 Sat Monitoring; Complete Time: 02:54 [facility] 05/31 02:53 Order name: CONS Physician Consult EDVT EC:01 Rate is 96 beats/min. Rhythm is regular. QRS [place] is Normal. MS interval is normal. QRS guido interval is normal. QT interval is normal. No Q waves. T waves are Normal. No ST changes noted. Clinical impression: Normal ECG and No evidence of ischemia. Interpreted by me. Reviewed by me. Administered Medications: 04:15 Drug: Pepcid 20 mg Route: IVP; Site: right antecubital; ea 06:58 Follow up: Response: No adverse reaction ea 04:16 Drug: Rocephin 1 grams Route: IV; Rate: per protocol; Site: right antecubital; ea 04:30 Follow up: IV Status: Completed infusion ea 04:16 Drug: Lovenox 1 mg/kg Route: Sub-Q; Site: right lower abdomen; ea 06:58 Follow up: Response: No adverse reaction ea 04:17 Drug: Decadron - Dexamethasone 10 mg Route: IVP; Site: right antecubital; ea 06:59 Follow up: Response: No adverse reaction ea 04:18 Drug: NS 0.9% 500 ml Route: IV; Rate: bolus; Site: right antecubital; ea 06:59 Follow up: IV Status: Completed infusion; IV Intake: 500ml ea 04:18 Drug: NS 0.9% 1000 ml Route: IV; Rate: 125 ml/hr; Site: right antecubital; ea 06:59 Follow up: Response: No adverse reaction; IV Status: Completed infusion ea 04:20 Not Given (Other Intervention Used): Tylenol 1000 mg PO once ea 04:30 Drug: Zithromax 500 mg Route: IVPB; Infused Over: 1 hrs; Site: right antecubital; ea 07:16 Drug: Aspirin 162 mg Route: PO; ea 08:00 Follow up: Response: No adverse reaction sv 14:08 Not Given (Ordered as admission order (see [facility])): Ivermectin 200 mcg/kg PO once; aa5 administer on an empty stomach 20:55 Not Given (Physician Discretion): Albuterol HFA Inhaler 4 puffs Inhalation once ea Disposition: 05/31/20 02:45 Hospitalization ordered by Pancho Moreland for Inpatient Admission. Preliminary diagnosis are Fever, unspecified, SARS-associated coronavirus as the cause of diseases classified elsewhere - covid 19, Hypoxemia. - Bed requested for Telemetry/MedSurg (Inpatient). - Status is Inpatient Admission. ea - Condition is Stable. - Problem is new. - Symptoms have improved. Signatures: Dispatcher [employer] EDMS Linda Denny RN Kenyon Solomon MD MD cha Antunez, Elena, RN RN ea [place], MyKena mw2 Daisy Garcia RN, Audri RN aa5 Corrections: (The following items were deleted from the chart) 02:49 02:45 Hospitalization Ordered by Pancho Moreland MD for Inpatient Admission. Preliminary diagnosis is Fever, unspecified; SARS-associated coronavirus as the cause of diseases classified elsewhere - covid 19; Hypoxemia. Bed requested for Telemetry/MedSurg (Inpatient). Status is Inpatient Admission. Condition is Stable. Problem is new. Symptoms have improved. [facility] 06/01 01:03 05/31 02:49 05/31/2020 02:45 Hospitalization Ordered by Pancho Moreland MD for Inpatient mw2 Admission. Preliminary diagnosis is Fever, unspecified; SARS-associated coronavirus as the cause of diseases classified elsewhere - covid 19; Hypoxemia. Bed requested [facility] ER HOLD. Status is Inpatient Admission. Condition is Stable. Problem is new. Symptoms have improved. 06/01 02:49 01:03 05/31/2020 02:45 Hospitalization Ordered by Pancho Moreland MD for Inpatient ea Admission. Preliminary diagnosis is Fever, unspecified; SARS-associated coronavirus as the cause of diseases classified elsewhere - covid 19; Hypoxemia. Bed requested for Telemetry/MedSurg (Inpatient). Status is Inpatient Admission. Condition is Stable. Problem is new. Symptoms have improved. mw2
[2020-05-31 03:28] LABS: Absolute Lymphocytes (CBC) 0.4 K/uL (0.7-4.9); Basophils % 0.2 % (0-1.3); Hematocrit 38.1 % (36.0-45.0); MPV 8.2 fL (7.6-11.3); RBC Red Blood Cell Count 4.79 M/uL (3.86-4.86)
[2020-05-31 03:42] LABS: Protime INR 1.14
[2020-05-31 03:56] LABS: Albumin 3.2 g/dL (3.4-5.0); Bilirubin Direct 0.1 mg/dL (0-0.2); Bilirubin Total 0.3 mg/dL (0.2-1.0); C-Reactive Protein 50.7 mg/L (<3.00); Ferritin 186.2 ng/mL (8-388); Magnesium 2.1 mg/dL (1.8-2.4); Potassium 3.6 mmol/L (3.5-5.1); Protein, Total 7.8 g/dL (6.4-8.2); Troponin (Emerg Dept Use Only) 0.06 ng/mL (0.0-0.045)
[2020-05-31] MEDS ORDERED: NA CHLORIDE 0.9% 250 ML ONE (04:17)
[2020-05-31] MEDS ORDERED: NA CHLORIDE 0.9% 500 ML ONE (04:17)
[2020-05-31] MEDS ORDERED: AZITHROMYCIN 500 MG INJ IVPB ONE (04:17)
[2020-05-31] MEDS ORDERED: dexAMETHasone 10 MG/ML VIAL ONE (04:17)
[2020-05-31] MEDS ORDERED: ENOXAPARIN 80 MG/0.8 ML SQ ONE ×2 (04:17→18:33)
[2020-05-31] MEDS ORDERED: FAMOTIDINE 20 MG/2 ML VIAL IV ONE (04:18)
[2020-05-31] MEDS ORDERED: CEFTRIAXONE/SWI 1gm 1 GM/10 ML SYR ONE (04:18)
--- NOTE | 2020-05-31 06:18 | EKG ---
Test Date: 2020-05-31 Test Time: 02:43:25 Manufacturing Machine Operator: COY MEASUREMENT RESULTS: Intervals: Rate: 96 [place]: 152 QRSD: 68 QT: 336 QTc: 424 [place]: P: 61 NJ: 152 QRS: 27 T: 12 INTERPRETIVE STATEMENTS: Normal sinus rhythm Possible Left atrial enlargement Borderline ECG Compared to ECG 08/27/2005 09:11:00 Sinus tachycardia no longer present Left ventricular hypertrophy no longer present Early repolarization no longer present Electronically Signed On 05-31-20 06:17:53 ORDNANCE KEEPER by Justo Le
[2020-05-31 07:25] VITALS: BMI 32.9
[2020-05-31] MEDS ORDERED: ASPIRIN 81 MG CHEWABLE TABLET ONE (07:27)
[2020-05-31] MEDS ORDERED: ALBUTEROL 2.5 MG/3 ML NEB SOL NEB PRN (07:48)
[2020-05-31] MEDS ORDERED: MORPHINE 2 MG/ML SYR IV PRN (07:48)
[2020-05-31] MEDS ORDERED: ONDANSETRON 4 MG/2 ML VIAL IV PRN (07:48)
[2020-05-31] MEDS ORDERED: IPRATROPIUM BROM 0.5MG/2.5ML NEB PRN (07:48)
[2020-05-31] MEDS ORDERED: ALBUTEROL INHALER 60 PUFF/8 GM IH PRN (07:48)
--- NOTE | 2020-05-31 07:56 | RAD REPORT ---
EXAM DESCRIPTION: Nikolay Single View05/31/2020 2:59 am CLINICAL HISTORY: Cough COMPARISON: May 26, 2020 FINDINGS: [id number] bilateral pulmonary opacities. The heart is mildly enlarged IMPRESSION: Mild to moderate bilateral pulmonary opacities probably pneumonia
[2020-05-31] MEDS ORDERED: FAMOTIDINE 20 MG/2 ML VIAL IV SCH ×2 (09:00→21:00)
[2020-05-31] MEDS: dexAMETHasone 4 MG/ML VIAL IV SCH ×2 (10:00→21:16)
[2020-05-31] MEDS ORDERED: dexAMETHasone 4 MG/ML VIAL ONE ×2 (10:28→20:39)
--- NOTE | 2020-05-31 12:18 | P.CNS ---
Date of Consult: 05/31/20 Reason for Consult: Pneumonia due to kuhn virus Chief Complaint: Shortness of breath History of Present Illness: Patient is 59 years of age tested positive for kuhn virus on Wednesday became progressively more short of breath admitted here from the emergency room she is currently doing better feeling better sats satisfactory CT scan shows minimal changes Allergies No Known Allergies Allergy (Verified 05/31/20 07:47) Home Medications: Levothyroxine Sodium [Synthroid] 112 mcg PO DAILY 05/31/20 - Past Medical/Surgical History Diabetic: No -: Thyroid problem -: HTN -: High Cholesterol Review of Systems General: Weakness Respiratory: Shortness of Breath Physical Examination Temp Pulse Resp BP Pulse Ox 98.8 F 85 18 114/60 100 05/31/20 11:08 05/31/20 11:08 05/31/20 11:08 05/31/20 11:08 05/31/20 11:08 Laboratory Data (last 24 hrs) 05/31/20 03:00: PT 13.4 H, INR 1.14 05/31/20 03:00: WBC 6.1 D, Hgb 12.2, Hct 38.1, Plt Count 179 05/31/20 03:00: Sodium 133 L, Potassium 3.6, BUN 12, Creatinine 0.83, Glucose 97, Magnesium 2.1, Total Bilirubin 0.3, AST 43 H, ALT 36, Alkaline Phosphatase 60 - Problems (1) Pneumonia due to Coronavirus disease 2019 Current Visit: Yes Status: Acute Plan: Patient is 59 years of age admitted with pneumonia due to kuhn virus she has minimal changes on the CT scan.. Feeling better check if she qualifies for home O2 the discharged home on prednisone anti mg twice a day for a week then 10 mg twice a day vitamin-C D
[2020-05-31] MEDS ORDERED: VITAMIN D 1000 UNIT TAB PO SCH (13:00)
[2020-05-31] MEDS ORDERED: IVERMECTIN 3 MG TABLETS PO ONE (13:00)
--- NOTE | 2020-05-31 15:42 | P.SSS ---
Patient History Date of Service: 05/31/20 Reason for admission: Shortness of breath History of Present Illness: DYSPNEA, FEVER, COUGH. SHE HAS NEW DIAGNOSIS OF COVID 19 INFECTION. SHE WAS ON STEROIDS AND OTHER SUPPLEMENTS FOR COVID BUT FAILED TO IMPROVE. Allergies No Known Allergies Allergy (Verified 05/31/20 07:47) Home medications list reviewed: Yes Home Medications: Levothyroxine Sodium [Synthroid] 112 mcg PO DAILY 05/31/20 - Past Medical/Surgical History Has patient received pneumonia vaccine in the past: No Diabetic: No -: Thyroid problem -: HTN -: High Cholesterol - Social History Smoking Status: Never smoker Review of Systems 10-point ROS is otherwise unremarkable General: Weakness, Malaise Respiratory: Shortness of Breath Physical Examination - Vital Signs Temperature: 98.8 F Blood Pressure: 114/60 Pulse: 85 Respirations: 18 Pulse Ox (%): 100 - Physical Exam General: Alert, Moderate distress, Other (STILL SEEMS TO BE IN DISTRESS AND NOT ABLE TO GO HOME TODAY.) HEENT: Atraumatic, PERRLA, Mucous membr. moist/pink, EOMI, Sclerae nonicteric Cardiovascular: Regular rate/rhythm Gastrointestinal: Normal bowel sounds, No tenderness Musculoskeletal: No tenderness Integumentary: No rashes Neurological: Normal gait, Normal speech, Normal strength at 5/5 x4 extr, Normal tone, Normal affect Lymphatics: No axilla or inguinal lymphadenopathy - Studies Laboratory Data (last 24 hrs) 05/31/20 03:00: PT 13.4 H, INR 1.14 05/31/20 03:00: WBC 6.1 D, Hgb 12.2, Hct 38.1, Plt Count 179 05/31/20 03:00: Sodium 133 L, Potassium 3.6, BUN 12, Creatinine 0.83, Glucose 97, Magnesium 2.1, Total Bilirubin 0.3, AST 43 H, ALT 36, Alkaline Phosphatase 60 - Diagnosis (Problem(s)) (1) Pneumonia due to Coronavirus disease 2019 Current Visit: Yes Status: Acute Plan: SHE IS ON STEROIDS IV THIAMINE, D, C, MELATONIN. IVERMECTINE WITH THE MASK PROTOCOL. SHE MAY BE ABLE TO GO HOME IN AM IF IMPROVED. - Disposition Disposition: ROUTINE DISCHARGE
--- NOTE | 2020-05-31 17:54 | RAD REPORT ---
EXAM DESCRIPTION: CT - Chest For Pe Angio - 05/31/2020 7:10 am CLINICAL HISTORY: The patient is 59 years old and is Female; Cough;Dyspnea TECHNIQUE: Axial computed tomographic angiography images of the chest with intravenous contrast. S agittal and coronal reformatted images were created and reviewed. This CT exam was performed using one or more of the following dose reduction techniques: automated exposure control, adjustment of t he mA and/or kV according to patient size, and/or use of iterative reconstruction technique. MIP reconstructed images were created and reviewed. COMPARISON: No relevant prior studies available. FINDINGS: ARTIFACTS: The exam is suboptimal secondary to motion artifact. PULMONARY ARTERIES: There are no obvious filling defects identified within the pulmonary arteries to suggest pulmonary embolism. AORTA: No acute findings. No thoracic aortic aneurysm. LUNGS: Patchy groundglass opacities are noted throughout the lungs with associated interlobular t hickening. The tracheobronchial tree is widely patent. PLEURAL SPACE: Unremarkable. No significant effusion. No pneumothorax. HEART: The heart is enlarged. There is a trace pericardial effusion. No evidence of RV dysfunct ion. BONES/JOINTS: No acute fracture. No dislocation. SOFT TISSUES: Unremarkable. LYMPH NODES: Unremarkable. No enlarged lymph nodes. IMPRESSION: 1. No evidence of pulmonary embolism. 2. Commonly reported imaging features of (COVID-19 or viral) pneumonia are present. Other processes such as influenza pneumonia and organizing pneumonia, as can be seen with drug toxicity and connecti ve tissue disease, can cause a similar imaging pattern. [id number] Electronically signed by: Dodie Avelar MD 05/31/2020 4:54 AM BROADCAST SUPERVISOR Due to temporary technical issues with the PACS/Fluency reporting system, reports are being signed by the in house radiologists without review as a courtesy to insure prompt reporting. The interpreting radiologist is fully responsible for the content of the report.
[2020-05-31] MEDS ORDERED: ENOXAPARIN 80 MG/0.8 ML SQ SCH (18:00)
[2020-05-31] MEDS ORDERED: CEFTRIAXONE/SWI 1gm 1 GM/10 ML SYR IV SCH (18:00)
[2020-05-31] MEDS ORDERED: MELATONIN 5 MG TABLET PO SCH (21:00)
[2020-05-31] MEDS ORDERED: THIAMINE 200 MG/2 ML INJ IVP SCH (21:00)
[2020-05-31] MEDS ORDERED: MELATONIN 5 MG TABLET PO ONE (21:07)
[2020-05-31] MEDS: ACETAMINOPHEN 325 MG TABLET PO PRN (21:42)
[2020-05-31] MEDS ORDERED: ACETAMINOPHEN 325 MG TABLET ONE (21:55)
[2020-06-01] MEDS ORDERED: AZITHROMYCIN IV 500 MG in NA CHLORIDE 0.9% 250 ML IVPB SCH (05:00)
[2020-06-01 05:04] LABS: Absolute Lymphocytes (CBC) 0.6 K/uL (0.7-4.9); Basophils % 0.1 % (0-1.3); Hematocrit 38.8 % (36.0-45.0); Lymphocytes % 6.3 % (15.3-44.8); MPV 8.1 fL (7.6-11.3); RBC Red Blood Cell Count 4.78 M/uL (3.86-4.86)
[2020-06-01 05:19] LABS: Potassium 4.1 mmol/L (3.5-5.1)
[2020-06-01] MEDS ORDERED: LEVOTHYROXINE SOD 0.112 MG TAB PO SCH (06:30)
[2020-06-01] MEDS: dexAMETHasone 4 MG/ML VIAL IV SCH (08:11)
[2020-06-01] MEDS ORDERED: ASPIRIN EC 81 MG TAB PO SCH (09:00)
[2020-06-01] MEDS ORDERED: THIAMINE HCL 100 MG TABLET PO SCH (09:00)
[2020-06-01] MEDS ORDERED: ZINC SULFATE 220 MG CAP PO SCH (09:00)
[2020-06-01] MEDS ORDERED: VITAMIN D 1000 UNIT TAB PO SCH ×2 (09:00)
[2020-06-01 10:55] VITALS: O2SAT 95
[2020-06-01] MEDS: ACETAMINOPHEN 325 MG TABLET PO PRN (12:30)
[2020-06-01 12:52] VITALS: BP 121/60
[2020-06-01 13:50] VITALS: TEMP 98.8
== END 2020-06-01 14:22 | disposition home or self-care (01) | DRG 177 ==
LOC: ER 02:21 → ERHOLD 03:21 → 4TH 06-01 02:40
PROVIDERS: ADMIT Internal Medicine; ATTEND Internal Medicine
DX: U07.1 COVID-19 (principal); J12.82 Pneumonia due to coronavirus disease 2019; I10 Essential (primary) hypertension; Z79.890 Hormone replacement therapy
CPT/HCPCS: 36415; 71045; 71275; 80048; 80076; 82728; 82947; 83735; 83880; 84484; 85025; 85610; 86140; 93005; 94760; 96361; 96372; 96374; 96375; 99285; J0456; J0696; J1100; J3411; J7040; J7050; Q9967

== ENCOUNTER 2024-05-02 06:06 | Day surgery (SDC) | payer OTHER ==
[2024-04-27 16:28] LABS: Absolute Eosinophils 0.2 K/uL (0-0.5); Absolute Lymphocytes (CBC) 1.9 K/uL (0.7-4.9); Absolute Monocytes 0.7 K/uL (0.1-1.3); Absolute Neutrophil 4.9 K/uL (1.8-8.0); Basophils % 0.5 % (0-1.3); Eosinophils % 2.9 % (0-4.4); Hematocrit 41.4 % (36.0-45.0); Hemoglobin 13.3 g/dL (12.0-15.0); Lymphocytes % 24.1 % (15.3-44.8); MCH 26.8 pg (27.0-35.0); MCV 83.7 fL (80-100); Monocytes % 8.8 % (3.3-12.3); Neutrophils % 63.7 % (41.7-73.7); Nucleated Red Blood Cells % 0.1 % (0-0); Platelets 263 thou/uL (152-406); RBC Red Blood Cell Count 4.95 M/uL (3.86-4.86); Red Cell Distribution Width 14.9 % (12.1-15.2)
[2024-04-27 16:37] LABS: Anion Gap 7.5 mEq/L (5.0-15.0); Potassium 3.5 mEq/L (3.5-5.1)
--- NOTE | 2024-04-28 15:46 | EKG ---
Test Date: 2024-04-27 Test Time: 16:15:48 Technical Training Manager: LAURA MEASUREMENT RESULTS: Intervals: Rate: 86 RI: 174 QRSD: 72 QT: 342 QTc: 409 [place]: P: 69 RI: 174 QRS: 31 T: 42 INTERPRETIVE STATEMENTS: Normal sinus rhythm Biatrial enlargement Cannot rule out Anterior infarct, age undetermined Abnormal ECG No previous ECG available for comparison Electronically Signed On 04-28-24 15:45:23 ENGINEERING DESIGN SUPERVISOR by Casey Faustin
[2024-05-02] MEDS: Ringers Lactate 1,000 ML IV ONE (06:35)
[2024-05-02] MEDS ORDERED: ONDANSETRON 4 MG/2 ML VIAL ONE (06:52)
[2024-05-02] MEDS ORDERED: MIDAZOLAM HCL 2 MG/2 ML INJ ONE (06:52)
[2024-05-02] MEDS ORDERED: LIDOCAINE 1% MPF 5 ML VIAL ONE (06:52)
[2024-05-02] MEDS ORDERED: propofoL 200 MG/20 ML VIAL IV ONE (06:52)
[2024-05-02] MEDS ORDERED: FENTANYL CITR 100 MCG/2 ML ONE (06:52)
[2024-05-02] MEDS ORDERED: SILVER NITRATE 1 APPL TOP ONE (07:08)
[2024-05-02] MEDS ORDERED: LIDOCAINE HCL/EPINEPHRINE 20 ML MDV ONE (07:08)
[2024-05-02] MEDS ORDERED: NA CHLORIDE 0.9% 1,000 ML ONE (07:09)
[2024-05-02] MEDS ORDERED: EPHEDRINE SULF 50 MG/ML VIAL ONE (08:10)
[2024-05-02] MEDS: HYDROCODONE/APAP 7.5/325 MG TAB ONE (09:19)
--- NOTE | 2024-05-02 09:34 | OP ---
Date of Procedure: 05/02/2024 Surgeon: Chrissy Durand MD Preoperative Diagnoses: Postmenopausal bleeding, endometrial polyps. Postoperative Diagnoses: Postmenopausal bleeding, endometrial polyps. Procedures Performed: Operative hysteroscopy, polypectomy, and D and C with MyoSure LITE. Anesthesia: General with LMA. Complications: None. Drains: None. Specimens: Endometrial curettings and polyp. Condition: Stable. Findings: Endometrial polyps x4 were noted. The one that was irregular and sessile at the fundus wa s unable to be removed and sampled and other polyps removed. Cavity undistorted. Endometrium mostly unremarkable. Indications: The patient is a 63-year-old presented with postmenopausal bleeding, and transvaginal u ltrasound showed endometrial thickening, so she was sampled. She underwent hysteroscopy in the offic e. The polyps were noted. Sample was performed, but did not seem to be adequate and since there wer e multiple polyps, there was need for removal and so she was brought back, was also consented for hys teroscopy, polypectomy with the operative device here in the hospital under anesthesia. Description Of Procedure: After being re-consented in the preoperative area this morning, she was br ought back to the OR. She was placed in a supine fashion on the operating table. General anesthesia with LMA given, placed in dorsal lithotomy position using Pawan stirrups. Speculum placed to expose the cervix. Anterior lip grasped with a single-tooth tenaculum. Cervix dilated with 18-Croatian and the operative MyoSure scope was taken and primed accordingly. Normal saline for distention. 0 degre e scope traversing under direct vision through the cervical canal into the uterine cavity and there w ere multiple polyps noted on the left coronal and posterior wall distally and to others on the right coronal end and on the fundus. All the polyps were removed using the MyoSure LITE device. The one i n the fundus was difficult for me to get it to the operative channel of the window and so sample as b est could be taken from this polyp was done and then endometrial curettings were performed with the M yoSure device on all 4 norman adequately. The sample was handed out for permanent pathology. The sco pe was removed. Instrument, needle, and sponge counts were correct. The fluid deficit was less than 100. The patient tolerated the procedure well. Her set pressure for the procedure itself was 100 m mHg up from 80 at baseline which did not give me adequate cavity distention. She was recovered from anesthesia and taken to PACU in stable condition. She will follow up in 7 to 10 days for discussion of pathology and discussion about the hysterectomy. If there is malignancy, w e will refer her to a profile stitching machine operator/oncologist and if there is atypia or the Pap was negative with the non-poly ps, still would prefer to recommend hysterectomy. FOX/LILY Voice ID: [id number] Report ID: [id number]
[2024-05-02 11:37] VITALS: BP 115/98; O2SAT 99
[2024-05-02 11:38] VITALS: TEMP 97
== END 2024-05-02 09:50 | disposition home or self-care (01) ==
LOC: OR 06:06 → MERGE 12:00
PROVIDERS: ATTEND Obstetrics & Gynecology
PROC: 0UDB8ZX Extraction of Endometrium, Via Natural or Artificial Opening Endoscopic, Diagnostic (ICD-10-PCS; principal; 2024-05-02 07:30)
DX: N95.0 Postmenopausal bleeding (principal); N84.0 Polyp of corpus uteri
CPT/HCPCS: 93005; 85025; 80048; 36415; 88305; 58558; J2704; J2003; J2250; J3010; J2405; J7120; J7030